=== PATIENT | female | born 1940 | race Caucasian/White ===

== ENCOUNTER 2016-04-25 21:26 | Inpatient (IN) | payer OTHER, MEDICARE ==
[~2016-04-25] VITALS: Ht 162.6 cm; Wt 50.8 kg
[~2016-04-25 21:26] MED LIST: ALLEGRA60 MG PO; CALCIUM + D SO1 EACH PO; CENTRUM SILVER1 EAC3 PO; COMBIVENT RESPIM4 GM IH; DICYCLOMINE HCL10 MG PO; FLUTICASONE PRO16 GM BOTH NARES; MAXALT10 MG PO; PROTONIX40 MG PO; RECLAST5 MG/100 M IV; SYMBICORT60 INHALA1 IH; TYLENOL EXTRA500 MG PO; VITAMIN C1000 M1 PO; ZINC30 MG PO; ZONISAMIDE50 MG PO
[2016-04-25 22:11] LABS: HEMATOCRIT 33.3 % (36.0-46.0); MCH 29.7 PG (29.0-34.0); MCHC 33.3 G/DL (30.0-36.0); PLATELET COUNT 200 K/uL (156-360); RBC DIS.WIDTH-CV 15.8 % (11.8-14.6); RBC DIS.WIDTH-SD 49.1 % (39-53); RED BLOOD COUNT 3.74 M/uL (3.80-5.20); WHITE BLOOD COUNT 11.6 K/uL (4.1-10.2)
[2016-04-25 22:22] LABS: CHLORIDE 105 mEq/L (99-109); POTASSIUM 3.4 mEq/L (3.7-5.4); SODIUM 135 mEq/L (136-147)
[2016-04-25 22:24] LABS: GLUCOSE 120 mg/dL (70-99)
[2016-04-25 22:26] LABS: ANION GAP 9 MEQ/L (2-14)
[2016-04-25 22:28] LABS: GFR ESTIMATE (CALCULATED) > 59 mL/min/
[2016-04-25 22:29] LABS: UREA NITROGEN (BUN) 15 mg/dL (9-23)
[2016-04-25 22:32] LABS: TROP-I INTERPRETATION NEGATIVE; TROPONIN-I 0.02 ng/mL (0.0-0.30)
[2016-04-26] VITALS (7 sets, daily range): BP systolic 111–149; BP diastolic 56–86
[2016-04-26] MEDS ORDERED: TRANSDERM-SCO1 PATCH TD (01:53)
[2016-04-26] MEDS ORDERED: DEXAMETHASONE4 MG PO (01:54)
[2016-04-26] MEDS ORDERED: ZOFRAN4 MG PO (01:54)
[2016-04-26] MEDS ORDERED: HYDROCODON-ACE1 EAC7 PO (01:55)
[2016-04-26] MEDS ORDERED: PROMETHAZINE HC25 MG PR (01:55)
[2016-04-26] MEDS ORDERED: MORPHINE SULFAT30 M2 PO (01:56)
[2016-04-26 05:57] LABS: BASE EXCESS -4.5 mEq/L (-3 to +3); BICARBONATE 20.2 mEq/L (22-26); CARBOXY HGB 1.6 % (0-5); COMMENTS - BLOOD GASES C+; DEVICE NC; METHEMOGLOBIN 2.3 % (0-1.5); O2 FLOW 3 L/MIN; PCO2 35 mm Hg (35-45); PO2 99 mm Hg (80-100); SITE RB; TOTAL RESP RATE 24 resp/min; pH 7.37 (7.35-7.45)
[2016-04-26 06:57] LABS: EOSINOPHIL (%) 0.4 % (0-5); EOSINOPHIL COUNT 0.1 K/uL (0-0.3); HEMATOCRIT 35.2 % (36.0-46.0); IMMATURE GRANULOCYTE (%) 0.6 % (0.0-0.7); IMMATURE GRANULOCYTE COUNT 0.1 K/uL; LYMPHOCYTE COUNT 1.5 K/uL (1.0-2.8); MCH 30.3 PG (29.0-34.0); MCHC 33.5 G/DL (30.0-36.0); MCV 90.5 FL (83-99); MEAN PLAT.VOLUME 9.8 uM^3 (9.5-12.4); MONOCYTE (%) 4.7 % (3-12); MONOCYTE COUNT 0.9 K/uL (0-0.8); NEUTROPHIL (%) 86.4 % (45-76); NEUTROPHIL COUNT 17.1 K/uL (1.8-6.4); PLATELET COUNT 236 K/uL (156-360); RBC DIS.WIDTH-CV 16.3 % (11.8-14.6); RBC DIS.WIDTH-SD 52.6 % (39-53); RED BLOOD COUNT 3.89 M/uL (3.80-5.20)
[2016-04-26 07:20] LABS: WHITE BLOOD COUNT 19.7 K/uL (4.1-10.2)
[2016-04-26 08:41] LABS: INTER. NORMALIZED RATIO 1.1; PROTHROMBIN TIME 11.2 (9.2-11.2); PTT 23.8 (25-32)
[2016-04-26 09:45] LABS: TYPE OF FLUID PLEURAL
[2016-04-26 10:45] LABS: BODY FLUID LDH 135 IU/L; BODY FLUID PROTEIN < 3.0 G/DL
[2016-04-26 10:47] LABS: BODY FLUID RBC'S < 1000 /MM^3 (0-100); BODY FLUID WBC'S 337 /MM^3 (0-500)
[2016-04-26 12:14] LABS: BODY FLUID EOSINOPHILS 0 % (0-25); MONO RAW COUNT 99; MONONUCLEAR WBC'S 99 %; POLY RAW COUNT 1; POLYNUCLEAR WBC'S 1 % (0-25)
[2016-04-27 00:03] VITALS: BP 128/65
[2016-04-27 06:38] LABS: MCH 30.1 PG (29.0-34.0); MCHC 34.2 G/DL (30.0-36.0); PLATELET COUNT 208 K/uL (156-360); RBC DIS.WIDTH-CV 16.1 % (11.8-14.6); RBC DIS.WIDTH-SD 50.9 % (39-53); RED BLOOD COUNT 3.75 M/uL (3.80-5.20)
[2016-04-27 06:39] LABS: WHITE BLOOD COUNT 10.2 K/uL (4.1-10.2)
[2016-04-27 07:03] LABS: ANION GAP 15 MEQ/L (2-14); CHLORIDE 103 MEQ/L (99-109); GFR ESTIMATE (CALCULATED) > 59 mL/min/; GLUCOSE 113 mg/dL (70-99); POTASSIUM 3.4 MEQ/L (3.7-5.4); SAMPLE HEMOLYSIS CHECK 0; SAMPLE ICTERIC CHECK 0; SAMPLE LIPEMIA CHECK 0; SODIUM 139 MEQ/L (136-147); UREA NITROGEN (BUN) 18 mg/dL (9-23)
[2016-04-27 08:05] VITALS: BP 141/61
[2016-04-27 11:35] VITALS: BP 168/74
[2016-04-27 16:18] VITALS: BP 160/78
[2016-04-27 19:35] VITALS: BP 142/64
[2016-04-27 22:59] VITALS: BP 152/63
[2016-04-28 03:07] VITALS: BP 116/58
[2016-04-28 08:19] LABS: HEMATOCRIT 31.6 % (36.0-46.0); MCH 30.8 PG (29.0-34.0); MCHC 34.2 G/DL (30.0-36.0); PLATELET COUNT 187 K/uL (156-360); RBC DIS.WIDTH-CV 16.6 % (11.8-14.6); RBC DIS.WIDTH-SD 53.3 % (39-53); RED BLOOD COUNT 3.51 M/uL (3.80-5.20); WHITE BLOOD COUNT 9.3 K/uL (4.1-10.2)
[2016-04-28 08:43] LABS: ANION GAP 9 MEQ/L (2-14); CHLORIDE 106 MEQ/L (99-109); GFR ESTIMATE (CALCULATED) > 59 mL/min/; POTASSIUM 3.5 MEQ/L (3.7-5.4); SAMPLE HEMOLYSIS CHECK 0; SAMPLE ICTERIC CHECK 0; SAMPLE LIPEMIA CHECK 0; SODIUM 139 MEQ/L (136-147); UREA NITROGEN (BUN) 19 mg/dL (9-23)
[2016-04-28 08:52] LABS: GLUCOSE 76 mg/dL (70-99)
[2016-04-28 08:53] LABS: EOSINOPHIL (%) 0.8 % (0-5); EOSINOPHIL COUNT 0.1 K/uL (0-0.3); IMMATURE GRANULOCYTE (%) 0.3 % (0.0-0.7); LYMPHOCYTE COUNT 1.2 K/uL (1.0-2.8); MONOCYTE (%) 9.2 % (3-12); MONOCYTE COUNT 0.9 K/uL (0-0.8); NEUTROPHIL COUNT 7.2 K/uL (1.8-6.4)
[2016-04-28 09:21] VITALS: BP 134/64
[2016-04-28 16:30] VITALS: BP 157/67
[2016-04-28 19:31] VITALS: BP 165/74
[2016-04-28 23:14] VITALS: BP 146/78
[2016-04-29 02:58] VITALS: BP 128/76
[2016-04-29 06:45] LABS: HEMATOCRIT 30.1 % (36.0-46.0); MCH 30.1 PG (29.0-34.0); MCHC 33.6 G/DL (30.0-36.0); MCV 89.9 FL (83-99); PLATELET COUNT 159 K/uL (156-360); RBC DIS.WIDTH-CV 16.8 % (11.8-14.6); RBC DIS.WIDTH-SD 54.5 % (39-53); RED BLOOD COUNT 3.35 M/uL (3.80-5.20); WHITE BLOOD COUNT 6.6 K/uL (4.1-10.2)
[2016-04-29 06:55] LABS: EOSINOPHIL (%) 0.9 % (0-5); EOSINOPHIL COUNT 0.1 K/uL (0-0.3); IMMATURE GRANULOCYTE (%) 0.3 % (0.0-0.7); LYMPHOCYTE COUNT 1.2 K/uL (1.0-2.8); MONOCYTE (%) 7.5 % (3-12); MONOCYTE COUNT 0.5 K/uL (0-0.8); NEUTROPHIL (%) 73.8 % (45-76); NEUTROPHIL COUNT 4.8 K/uL (1.8-6.4)
[2016-04-29 07:15] VITALS: BP 133/71
[2016-04-29 11:16] VITALS: BP 163/71
[2016-04-29 16:21] VITALS: BP 162/64
[2016-04-29 19:21] VITALS: BP 162/70
[2016-04-29 22:45] VITALS: BP 150/66
[2016-04-30 04:06] VITALS: BP 146/72
[2016-04-30 07:23] VITALS: BP 149/70
[2016-04-30 15:34] VITALS: BP 139/80
[2016-04-30 23:47] VITALS: BP 155/70
[2016-05-01 07:50] VITALS: BP 185/77
[2016-05-01 08:22] LABS: HEMATOCRIT 31.1 % (36.0-46.0); MCH 29.7 PG (29.0-34.0); MCHC 32.8 G/DL (30.0-36.0); MCV 90.7 FL (83-99); MEAN PLAT.VOLUME 9.9 uM^3 (9.5-12.4); PLATELET COUNT 158 K/uL (156-360); RBC DIS.WIDTH-CV 16.4 % (11.8-14.6); RBC DIS.WIDTH-SD 52.3 % (39-53); RED BLOOD COUNT 3.43 M/uL (3.80-5.20); WHITE BLOOD COUNT 5.9 K/uL (4.1-10.2)
[2016-05-01 08:28] LABS: EOSINOPHIL (%) 1.5 % (0-5); EOSINOPHIL COUNT 0.1 K/uL (0-0.3); IMMATURE GRANULOCYTE (%) 0.3 % (0.0-0.7); IMMATURE GRANULOCYTE COUNT 0.2 K/uL; LYMPHOCYTE COUNT 1.3 K/uL (1.0-2.8); MONOCYTE (%) 10.8 % (3-12); MONOCYTE COUNT 0.6 K/uL (0-0.8); NEUTROPHIL (%) 64.9 % (45-76); NEUTROPHIL COUNT 3.8 K/uL (1.8-6.4)
[2016-05-01] MEDS ORDERED: SPIRIVA RESPIMAT4 GM IH (11:29)
[2016-05-01] MEDS ORDERED: XANAX0.25 MG PO (11:29)
[2016-05-01] MEDS ORDERED: MORPHINE SULFAT30 M2 PO (11:30)
[2016-05-01] MEDS ORDERED: HYDROCODON-ACE1 EAC7 PO (11:30)
== END 2016-05-01 14:30 | disposition home or self-care (01) | DRG 181 ==
LOC: EME → EDBD 21:26 → EDOF 04-26 02:54 → 5EAST 04-26 02:54 → 4EAST 04-26 04:51 → 5EAST 04-26 19:46
PROVIDERS: Emergency Medicine; Hospitalist; Internal Medicine; Radiology Diagnostic Radiology
PROC: 0B9P3ZX Drainage of Left Pleura, Percutaneous Approach, Diagnostic (ICD-10-PCS; principal; 2016-04-26)
DX: C34.90 Malignant neoplasm of unspecified part of unspecified bronchus or lung (principal); J91.0 Malignant pleural effusion; J44.1 Chronic obstructive pulmonary disease with (acute) exacerbation; D80.3 Selective deficiency of immunoglobulin G [IgG] subclasses; J98.11 Atelectasis; J96.11 Chronic respiratory failure with hypoxia; T38.0X5A Adverse effect of glucocorticoids and synthetic analogues, initial encounter; K58.9 Irritable bowel syndrome, unspecified; K21.9 Gastro-esophageal reflux disease without esophagitis; E78.5 Hyperlipidemia, unspecified; Z92.3 Personal history of irradiation; Z88.2 Allergy status to sulfonamides; Z88.1 Allergy status to other antibiotic agents; Z92.21 Personal history of antineoplastic chemotherapy; Z87.891 Personal history of nicotine dependence; Z99.81 Dependence on supplemental oxygen
CPT/HCPCS: 36600; 71020; 71275; 80048; 82803; 82945; 83605; 83615 91; 84157; 84484; 85025; 85027; 85610; 85730; 87040; 87070; 87075; 87205; 88108; 88305; 89051; 93005; 94640; 94640 76; 94799; 99202; 99281; 99285; J0456; J1644; J2543; J2930; J7050; J7512; J7644